=== PATIENT | male | born 1965 | race Caucasian/White ===

== ENCOUNTER 2017-01-27 23:00 | Inpatient (IN) | payer OTHER ==
[~2017-01-27] VITALS: Ht 172.7 cm; Wt 102.1 kg
--- NOTE | ~2017-01-27 | PA ---
Unit #: [id number] #: [id number] Patient: NICO CARRANZA [id number] [facility] [address] [place] [address] [id number] MR#: [id number] NAME: NICO CARRANZA ROOM: [facility] Age: 51 Sex: M Admission Date: 01/28/2017 : 1965 Date of Assessment: 01/28/2017 Attending Physician: Trevor Ward M.D. Admitting Physician: Trevor Ward M.D. Primary Care Physician: Jeyson Valenzuela M.D. PSYCHIATRIC ASSESSMENT INFORMANTS The patient reliability, fair informant and chart reliability, good. CHIEF COMPLAINT Alcohol abuse and alcohol withdrawal. HISTORY OF PRESENT ILLNESS Mr. Nico Carranza is a 51-year-old male, presented with the above-mentioned complaint. The patient reports currently homeless, history of previous treatment for alcohol detox at [facility] in 2015. The patient reports drinking one-fifth of vodka, history of withdrawal seizures. The patient denied any suicidal or homicidal ideation. Denied any psychotic symptom. The patient works at [employer], temporary job. The patient reports completed GED, currently homeless, lives outside. The patient reports recent stressors include mother is dying, no income. The patient has hypertension and diabetes. The patient reports decreased sleep and decreased appetite. The patient denied any history of abuse. No legal charges, but in the past history of DUI and theft by deception. The patient denied any history of any developmental delays. The patient is on lisinopril, metformin, and Lexapro. The patient denied use of any other street drugs. Reported history of blackout. No history of IV drug use. No history of HIV or hepatitis. Withdrawal symptoms included sleep problem, poor appetite, tremor, and irritability. Needing inpatient admission at this time for psychiatric stabilization. PAST PSYCHIATRIC HISTORY Remarkable for history of previous treatment at [facility] in 2015. FAMILY HISTORY AND SOCIAL HISTORY The patient has a poor support system. Currently, homeless, financial problem, and housing problem. MEDICAL HISTORY Remarkable for history of hypertension and diabetes. Musculoskeletal; muscle strength and tone, no atrophy or abnormal movement. Gait normal. MEDICATION HISTORY The patient is on metformin, lisinopril, and Lexapro. ALLERGIES No known drug allergies. Unit #: [id number] #: [id number] Patient: NICO CARRANZA SUBSTANCE ABUSE HISTORY Please see above. REVIEW OF SYSTEMS HEENT: Eyes, clear. Ears, nose, mouth, and throat; clear. CARDIOVASCULAR: Unremarkable. RESPIRATORY: Unremarkable. GI: Unremarkable. : Unremarkable. SKIN: Unremarkable. LYMPH NODE: Unremarkable. NEUROLOGIC: Unremarkable. ENDOCRINE: Unremarkable. HEMATOLOGIC: Unremarkable. ALLERGIC/IMMUNOLOGIC: Unremarkable. MUSCULOSKELETAL: Muscle strength and tone, no atrophy or abnormal movement. Gait normal. MENTAL STATUS EXAMINATION CONSTITUTIONAL: Measurement of vital signs; temperature 97.9, heart rate 66, respiratory rate 16, and blood pressure 152/82. Height 5 feet and 8 inches and weight 225 pounds. GENERAL APPEARANCE: The patient dressed casually. The patient did not show any facial deformity. MUSCULOSKELETAL: Please see above. PSYCHIATRIC EXAMINATION Description of speech; regular rate, normal volume, normal articulation, and coherent. Description of thought process, goal directed. Description of association, intact. Description of abnormal psychotic thinking; the patient denied any hallucination or delusions, but mood lability and substance abuse. Description of the patient's judgment: Concerning everyday activity, poor. Social situation, poor. Concerning psychiatric condition, poor. Complete mental status examination; oriented in time, place, and person. Recent and remote memory, fair. Attention span and concentration, fair. Language, able to name object and repeat phrases. Fund of knowledge, aware of current event and passive vocabulary intact. Mood and affect, sad and dysphoric. Insight and judgment, fair to poor. ASSETS AND LIABILITIES Assets, the patient is articulate and able to take care of his ADL. Liability, history of substance abuse and depression. ADMITTING DIAGNOSES Psychiatric: Alcohol use disorder, severe, F10.20 and major depressive disorder, recurrent, severe, F33.2. Secondary diagnosis: Deferred. Medical diagnoses: Hypertension, diabetes, and obesity. Stressors: Psychosocial stressors. PSYCHIATRIC PLAN AND TREATMENT GOAL AND DISCHARGE PLAN 1. Advised to admit the patient on the inpatient unit. Provide safe, supportive, and structured environment. Unit #: [id number] #: [id number] Patient: NICO CARRANZA 2. Ordered labs; CBC, CMP, UA, and UDS. 3. Detox protocol and detox monitoring. Advised to resume home medication. If needed, consider further adjustment of medication. The patient to attend group therapy, individual therapy, and chemical dependency group. Treatment goal to attain euthymic mood, gain insight into his problem, and learn coping skills. DISCHARGE PLAN Plan to stabilize the patient and consider followup in outpatient program. ESTIMATED LENGTH OF STAY 3 to 5 days. Dictated by... Imelda Belcher/graciela TD: 01/28/2017 12:26 JOB #: [id number] PSYCHIATRIC ASSESSMENT Page 1 of 1 X Trevor Ward MD X PSYCHIATRIC ASSESSMENT
--- NOTE | ~2017-01-27 | DS ---
Unit #: [id number] #: [id number] Patient: VANESSA JORDAN [id number] [facility] [address] [place] [address] [id number] I MR#: [id number] NAME: VANESSA JORDAN ROOM: [facility] Age: 51 Sex: M Admission Date: 01/28/2017 : 1965 Discharge Date: 01/30/2017 Attending Physician: Trevor Ward M.D. Primary Care Physician: Jeyson Valenzuela M.D. DISCHARGE SUMMARY REASON FOR ADMISSION Alcohol abuse. DIAGNOSTIC STUDIES Laboratory data, urine drug screen positive for benzodiazepines and barbiturates. HOSPITAL COURSE The patient was admitted to inpatient unit on January 28 and discharged on 01/30/17. He was treated on the inpatient unit with group therapy, individual therapy, chemical dependency group, detox protocol, detox monitoring. The patient was responsive to treatment. Subsequently, the patient was discharged with the plan to follow up in outpatient program. DISCHARGE DIAGNOSES PSYCHIATRIC: Rush I Alcohol use disorder, severe, F10.20. Major depressive disorder, recurrent, severe, F33.2. Rush II Deferred. Rush III Hypertension. Diabetes. Obesity. Rush IV Psychosocial stressors. 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 DISCHARGE MEDICATIONS Lexapro 10 mg daily for depression CONDITION AT DISCHARGE The patient is pleasant and cooperative, denied any psychotic symptoms or any suicidal ideation. PROGNOSIS Guarded. DIET AND ACTIVITY As tolerated. Unit #: [id number] #: [id number] Patient: VANESSA JORDAN Dictated by... Imelda Belcher/shailesh TD: 02/01/2017 06:32 JOB #: [id number] DISCHARGE SUMMARY Page 1 of 1 X Trevor Ward MD X DISCHARGE SUMMARY
--- NOTE | ~2017-01-27 | HP ---
Unit #: [id number] #: [id number] Patient: VANESSA JORDAN [id number] [facility] [address] [place] [address] [id number] I MR#: [id number] NAME: VANESSA JORDAN ROOM: [facility] Age: 51 Sex: M Admission Date: 01/28/2017 : 1965 Attending Physician: Trevor Ward M.D. Admitting Physician: Trevor Ward M.D. Primary Care Physician: Jeyson Valenzuela M.D. HISTORY AND PHYSICAL HISTORY OF PRESENT ILLNESS Patient is a 51-year-old male admitted to [address] [place] [address] on 01/28/2017 to detox from alcohol. PAST MEDICAL HISTORY 1. Hypertension. 2. Diabetes. 3. Obesity. PAST SURGICAL HISTORY The patient denies. SOCIAL HISTORY He works at [employer]. He is homeless. He drinks a fifth of vodka per day. FAMILY MEDICAL HISTORY Noncontributory. ALLERGIES No known drug allergies. CURRENT MEDICATIONS 1. Clonidine 2. Lexapro 3. Folic acid 4. Lasix 5. Gabapentin 6. Lactulose 7. Lisinopril 8. Multi-vitamin 9. Metformin REVIEW OF SYSTEMS CONSTITUTIONAL: No fever or chills. HEENT: Denies any sore throat, ear pain or runny nose. CARDIOVASCULAR: Denies chest pain, irregular heart rhythm or palpitations. CHEST: Denies shortness of breath or cough. No hemoptysis. GASTROINTESTINAL: Denies nausea, vomiting, diarrhea or chronic constipation. ENDOCRINE: Denies history of increased thirst or urination. No recent significant weight loss or gain. GENITOURINARY: Denies dysuria, frequency, or hematuria. Unit #: [id number] #: [id number] Patient: VANESSA JORDAN SKIN: Denies any rashes. HEMATOLOGIC: Denies history of increased bleeding or bruising. MUSCULOSKELETAL: Denies any hot, swollen joints. No generalized muscle pain. NEUROLOGIC: Denies problems with vision or speech. No frequent, severe headaches. No numbness, tingling or weakness in any extremities. Denies loss of bladder or bowel control. PHYSICAL EXAM GENERAL: He is awake, alert and oriented in no acute distress. VITAL SIGNS: Temperature 98.3, heart rate 72, respiration 12, blood pressure 149/109. HEIGHT: 5'8". WEIGHT: 225 pounds. SKIN: Warm and dry without rash or lesion. HEENT: Normocephalic. TMs not viewed. Oral and nasal passages clear. Conjunctivae clear. PERRLA. EOMs intact. NECK: Supple without lymphadenopathy or thyromegaly. HEART: Regular rate and rhythm without murmur. LUNGS: Clear. ABDOMEN: Soft, nontender. : Not done. EXTREMITIES: No evidence of cyanosis, clubbing or edema. Moves all without focal deficit. NEUROLOGICAL: Grossly within normal limits. Cranial Nerves: II: Visual ortega are intact. III, IV AND : Extraocular movements are intact. Pupils are equal, round and reactive to light. V: Facial sensation is grossly normal. VII: Facial movements and expression are normal. VIII: Auditory acuity grossly intact. IX, X: Uvula is midline. Phonation is normal. XI: Patient shrugs shoulders and turns head normally. XII: Tongue protrudes in the midline. Sensory and Motor Function: Sensory and motor sensation is grossly normal. Motor: moves all extremities well. IMPRESSION 1. Psychiatric admission. 2. Hypertension. 3. Diabetes. 4. Obesity. RECOMMENDATIONS Psychiatric per psychiatrist. MEDICAL: No contraindication to participate in facility activities. MEDICAL PROGNOSIS Fair. MEDICAL CONDITION Stable. Dictated by... Unit #: [id number] #: [id number] Patient: VANESSA JORDAN Nel Matias/shan TD: 01/28/2017 23:48 JOB #: [id number] HISTORY AND PHYSICAL Page 1 of 1 X BENITO MORRISON APRN X HISTORY AND PHYSICAL
--- NOTE | ~2017-01-27 | PN ---
Unit #: [id number] #: [id number] Patient: NICO JORDAN [id number] [facility] [address] [place] [address] [id number] I MR#: [id number] NAME: NICO JORDAN ROOM: [facility] Age: 51 Sex: M Admission Date: 01/28/2017 : 1965 Attending Physician: Trevor Ward M.D. Admitting Physician: Trevor Ward M.D. Primary Care Physician: Imelda Funes PROGRESS NOTES DATE OF SERVICE: 01/29/2017 DISCUSSION Nico is a 51-year-old male, seen on 01/29/2017. The patient interviewed, chart reviewed, and obtained information from nursing staff. The patient was compliant and cooperative. Mood, sad and dysphoric. The patient reported having trouble sleeping, withdrawn, isolative, and still having withdrawal from alcohol. REVIEW OF SYSTEMS Complete review of systems unremarkable. MENTAL STATUS EXAMINATION General appearance, the patient dressed casually. Attention span and concentration, fair. Oriented in place and person. Mood and affect; sad, dysphoric, and withdrawn. Speech, monotone. Thought process, concrete. The patient denied any suicidal or homicidal ideation, but withdrawn and isolative. Recent and remote memory, poor. Insight and judgment, poor. DIAGNOSES Alcohol use disorder, severe and mood disorder, not otherwise specified. ASSESSMENT AND PLAN Advised to continue with current medication and therapeutic protocol. If needed, consider further adjustment of medication. Dictated by... Imelda Belcher/graciela TD: 01/30/2017 19:39 JOB #: [id number] Unit #: [id number] #: [id number] Patient: NICO JORDAN CAROLYNEMELI PROGRESS NOTES Page 1 of 1 X Trevor Ward MD PROGRESS NOTE
--- NOTE | ~2017-01-27 | HP ---
Unit #: [id number] #: [id number] Patient: NICO CARRANZA [id number] [facility] [address] [place] [address] [id number] I MR#: [id number] NAME: NICO CARRANZA ROOM: [facility] Age: 51 Sex: M Admission Date: 01/28/2017 : 1965 Attending Physician: Trevor Ward M.D. Admitting Physician: Trevor Ward M.D. Primary Care Physician: Jeyson Valenzuela M.D. HISTORY AND PHYSICAL Dictating a correction to a history and physical on Nico Carranza. Under physical examination under Cardiovascular - a grade two systolic murmur was noted over the apex. Dictated by... Nel Matias/shan TD: 01/29/2017 00:04 JOB #: [id number] HISTORY AND PHYSICAL Page 1 of 1 X BENITO MORRISON APRN X HISTORY AND PHYSICAL
--- NOTE | ~2017-01-27 | CO ---
Unit #: [id number] #: [id number] Patient: VANESSA JORDAN [id number] [facility] [address] [place] [address] [id number] I MR#: [id number] NAME: VANESSA JORDAN ROOM: [facility] Age: 51 Sex: M Admission Date: 01/28/2017 : 1965 Attending Physician: Trevor Ward M.D. Primary Care Physician: Jeyson Valenzuela M.D. Consultation Date: 01/28/2017 CONSULTATION REPORT ORDERING PROVIDER Dr. Ward. REASON FOR CONSULT To clarify medication. SUBJECTIVE The patient reports that he has a history of high blood pressure. He has been taking lisinopril 40 mg, clonidine 0.2 mg b.i.d., and Lasix 20 mg daily. He used to be on amlodipine, but it was stopped due to normalizing blood pressures. He denies any chest pain or shortness of breath at this time. OBJECTIVE CARDIOVASCULAR: His examination was unremarkable except for a grade 2 systolic murmur. VITAL SIGNS: His blood pressures were noted to be elevated at 172/109 and 149/109. The patient denies skipping any doses of his home medication. ASSESSMENT High blood pressure. PLAN Plan is to restart all of his home medications, but re-introduce amlodipine. Nurses were instructed to check blood pressure t.i.d. and notify if excessively elevated or decreased. I do think that the murmur is related to his high blood pressure and will likely resolve as it is better controlled. Dictated by... Nel Matias/graciela TD: 01/28/2017 16:45 JOB #: [id number] Unit #: [id number] #: [id number] Patient: VANESSA JORDAN CONSULTATION REPORT Page 1 of 1 X BENITO MORRISON APRN CONSULTATION REPORT
== END 2017-01-30 16:08 | disposition home or self-care (01) | DRG 897 ==
LOC: P1S 01-28 02:46
PROC: HZ2ZZZZ Detoxification Services for Substance Abuse Treatment (ICD-10-PCS; principal; 2017-01-28)
DX: F10.20 Alcohol dependence, uncomplicated (principal); F33.2 Major depressive disorder, recurrent severe without psychotic features; I10 Essential (primary) hypertension; E11.9 Type 2 diabetes mellitus without complications; E66.9 Obesity, unspecified; Z79.84 Long term (current) use of oral hypoglycemic drugs; Z59.0 Homelessness; Z68.34 Body mass index [BMI] 34.0-34.9, adult